=== PATIENT | male | born 1990 | race Caucasian/White ===

== ENCOUNTER 2021-11-24 11:17 | Emergency (ER) | payer OTHER ==
[2021-11-24 11:44] VITALS: TEMP 98
[2021-11-24] MEDS ORDERED: HYDROmorphone 1 MG/ML 1 ML SYRINGE IVP STA (12:19)
[2021-11-24] MEDS ORDERED: SODIUM CHLORIDE 0.9% 500 ML 500 ML IV STA (12:21)
[2021-11-24] MEDS ORDERED: ONDANSETRON 4 MG/2 ML VIAL IVP STA (12:21)
[2021-11-24] MEDS ORDERED: PROPOFOL 10 MG/ML 20 ML VIAL IV STA (12:21)
[2021-11-24] MEDS ORDERED: PROPOFOL 10 MG/ML 20 ML VIAL IV ONE (12:28)
--- NOTE | 2021-11-24 12:58 | XR ---
EXAMINATION TYPE: XR ankle limited RT DATE OF EXAM: 11/24/2021 COMPARISON: NONE HISTORY: Postreduction TECHNIQUE: 2 views submitted FINDINGS: There is persistent displaced fractures of the intra-articular posterior tibia, distal fibu la and medial margin of the tibia. There is improved alignment post reduction. Slight asymmetry the a nkle mortise persists although alignment of the tibia is markedly improved. IMPRESSION: Postreduction. See above.
--- NOTE | 2021-11-24 12:58 | XR ---
EXAMINATION TYPE: XR ankle complete RT DATE OF EXAM: 11/24/2021 COMPARISON: NONE HISTORY: Pain FINDINGS: Three views of the ankle demonstrate a displaced and angulated fracture of the distal fibula. There a ppears to be distortion of the ankle mortise. Bony density seen superimposed over the tibia likely re presenting a posterior malleolar fracture with anterior subluxation or dislocation of the tibia. The bony density along the medial malleolus may represent additional avulsion fracture. IMPRESSION: 1. Multiple displaced fractures with dislocation of the ankle.
--- NOTE | 2021-11-24 13:20 | ED ---
Disposition Clinical Impression: Trimalleolar fracture of right ankle, Dislocation of right ankle joint Disposition: HOME SELF-CARE Condition: Stable Instructions (If sedation given, give patient instructions): Ankle Fracture (ED), Moderate Sedation (ED), Ankle Dislocation (ED) Additional Instructions: Please remain nonweightbearing and follow-up with orthopedics as directed.Please return to the Emergency Department if symptoms worsen or any other concerns. Prescriptions: HYDROcodone/APAP 5-325MG [Levels 5] 1 each PO Q6HR PRN #12 tab PRN Reason: Pain Is patient prescribed a controlled substance at d/c from ED?: Yes If prescribed controlled substance>3 days was MAPS reviewed?: Prescribed <3 Days Referrals: None,Stated [Primary Care Provider] - 1-2 days Santosh Fountain MD [Medical Doctor] - 1-2 days Procedures - [place] Protocol (Time Out) Procedure Performed:: reduction of right ankle Performing Provider: Carlos Daniels Nurse: Saba Nicole Respiratory Therapist: Loc Ontiveros Patient Identification (2 identifiers required): Chart, Verbal, Arm Band, Name Patient/Legal Blind Hanger has Confirmed: Identity, Site, Procedure, Consent Site: right ankle Site Marked: Yes Site Verified With Patient/Guardian: Yes Final Confirmation: Procedure, Site, Laterality, Radiographs - Procedural Sedation Procedural Sedation Start Time: 12:28 Procedural Sedation Stop Time: 12:32 Indications: fracture/dislocation reduction ASA Class: II Mallampati Airway Score: 2 Preparation: monitoring engineer applied, pulse oximeter, capnometry used, supplemental O2 applied IV Propofol Dose (mgs): 150 Complications: none Patient Tolerated Procedure: well
[2021-11-24 13:34] VITALS: RESP 18
--- NOTE | 2021-11-24 13:44 | CT ---
EXAMINATION TYPE: CT ankle RT wo con DATE OF EXAM: 11/24/2021 COMPARISON: X-ray 11/24/2021 HISTORY: Right ankle pain after injury. CT DLP: 41.7 mGycm TECHNIQUE: Axial and sagittal and coronal images are submitted without contrast. FINDINGS: There is an obliquely oriented comminuted fracture with displacement of the distal fibula. There is a displaced intra-articular fracture of the medial malleolus. There also appears to be a fra cture of the lateral articular surface suspected displaced bony fragment. Small bony fragment is seen along the anterior margin the joint space likely representing loose body. There is a displaced posterior malleolar tibial fracture. There is soft tissue edema from the multiple displaced fractures. Remaining osseous structures appear to be intact. IMPRESSION: 1. Displaced trimalleolar fractures. Suspect a small bony fragment or loose body measuring 2 mm in th e anterior margin of the tibiotalar joint space. 2. There also appears to be displaced fracture of the lateral margin the distal intra-articular tibia with slight asymmetry of the ankle mortise.
--- NOTE | 2021-11-24 13:44 | ED ---
Lower Extremity Injury HPI - General Chief Complaint: Extremity Injury, Lower Stated Complaint: Broken/Dislocated Right Foot Time Seen by Provider: 11/24/21 11:48 Source: patient, RN notes reviewed Mode of arrival: ambulatory Limitations: no limitations - History of Present Illness Initial Comments: This a 31-year-old male presents emergency Department with chief complaint of a slip and fall, right ankle injury. Patient states he slipped on some ice catching his foot. Patient denies deformity to his right ankle. No other injuries no head injury no loss conscious. Patient states is severe pain to his right ankle. - Related Data Previous Rx's Medication Instructions Recorded HYDROcodone/APAP 5-325MG [[place] 5] 1 each PO Q6HR PRN #12 tab 11/24/21 Allergies Allergy/AdvReac Type Severity Reaction Status Date / Time No Known Allergies Allergy Verified 11/24/21 11:44 Review of Systems ROS Statement: Those systems with pertinent positive or pertinent negative responses have been documented in the HPI. ROS Other: All systems not noted in ROS Statement are negative. Past Medical History Past Medical History: Asthma History of Any Multi-Drug Resistant Organisms: None Reported Past Surgical History: No Surgical Hx Reported Past Psychological History: No Psychological Hx Reported Smoking Status: Never smoker Past Alcohol Use History: Occasional Past Drug Use History: Marijuana General Exam Limitations: no limitations General appearance: alert, in no apparent distress Head exam: Present: atraumatic, normocephalic, normal inspection Neck exam: Present: normal inspection. Absent: tenderness, meningismus, lymphadenopathy Respiratory exam: Present: normal lung sounds bilaterally. Absent: respiratory distress, wheezes, rales, rhonchi, stridor Cardiovascular Exam: Present: regular rate, normal rhythm, normal heart sounds. Absent: systolic murmur, diastolic murmur, rubs, gallop, clicks Extremities exam: Present: other (Right ankle there is obvious deformity, moderate swelling neurovascular intact) Course Vital Signs 11/24/21 11/24/21 11/24/21 11:42 12:28 12:30 Temperature 98 F Pulse Rate 101 H 86 90 Respiratory 20 20 15 Rate Blood Pressure 145/91 153/82 138/79 O2 Sat by Pulse 96 100 100 Oximetry 11/24/21 11/24/21 12:32 13:00 Temperature Pulse Rate 87 89 Respiratory 13 18 Rate Blood Pressure 132/87 136/90 O2 Sat by Pulse 100 99 Oximetry Procedures - [place] Protocol (Time Out) Procedure Performed:: reduction of right ankle Performing Provider: Carlos Daniels Nurse: Saba Nicole Respiratory Therapist: Loc Ontiveros Patient Identification (2 identifiers required): Chart, Verbal, Arm Band, Name 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: Identity, Site, Procedure, Consent Site: right ankle Site Marked: Yes Site Verified With Patient/Guardian: Yes Final Confirmation: Procedure, Site, Laterality, Radiographs - Orthopedic Joint Reduction Joint #1 Consent Obtained: written consent Side: right Analgesia: procedural sedation Technique Used: traction/counter-traction, direct manipulation Post-Reduction Neuro Exam: intact Post-Reduction Vascular Exam: intact Post Reduction X-Ray Obtained: Yes Post Reduction X-Ray Results: reduced Splint Applied: Yes Patient Tolerated Procedure: well, no complications - Orthopedic Splinting/Casting Injury #1 Side: right Lower Extremity Injury Location: short leg, ankle Lower Extremity Immobilizer: posterior splint, stirrup splint, synthetic pre-padded splint Other Orthopedic Equipment: crutches Medical Decision Making - Medical Decision Making Patient has trimalar fracture with subluxation. Patient was reduced and splinted case discussed with on-call orthopedics will follow the patient patient remain nonweightbearing, be on crutches. Disposition Clinical Impression: Trimalleolar fracture of right ankle, Dislocation of right ankle joint Disposition: HOME SELF-CARE Condition: Stable Instructions (If sedation given, give patient instructions): Moderate Sedation (ED), Ankle Fracture (ED), Ankle Dislocation (ED) Additional Instructions: Please remain nonweightbearing and follow-up with orthopedics as directed.Please return to the Emergency Department if symptoms worsen or any other concerns. Prescriptions: HYDROcodone/APAP 5-325MG [[place] 5] 1 each PO Q6HR PRN #12 tab PRN Reason: Pain Is patient prescribed a controlled substance at d/c from ED?: Yes When asked, does pt state using other controlled substances?: No If prescribed controlled substance>3 days was MAPS reviewed?: Prescribed <3 Days If opioid is for acute pain is fill amount 7 days or less?: Yes If Rx opioid, was Start Talking consent form obtained?: Yes Referrals: None,Stated [Primary Care Provider] - 1-2 days Santosh Fountain MD [Medical Doctor] - 1-2 days Time of Disposition: 13:44
[2021-11-24 13:54] VITALS: BP 128/85; PULSE 95
== END 2021-11-24 14:18 | disposition home or self-care (01) ==
LOC: EC 11:17
DX: S82.851A Displaced trimalleolar fracture of right lower leg, initial encounter for closed fracture (principal); S93.04XA Dislocation of right ankle joint, initial encounter; J45.909 Unspecified asthma, uncomplicated; F12.90 Cannabis use, unspecified, uncomplicated; W01.0XXA Fall on same level from slipping, tripping and stumbling without subsequent striking against object, initial encounter
CPT/HCPCS: 73600; 73610; 73700; 99284; 96374; 96375; 96361; 27818; J2405; J1170; J2704

== ENCOUNTER 2021-12-03 10:40 | Day surgery (SDC) | payer SELFPAY ==
[2021-12-02 11:08] VITALS: BMI 32.5
[~2021-12-03 10:40] MED LIST: DEXAMETHASONE SOD PHOSPHATE 4 MG/ML 1 ML VIAL IV ONE; VANCOMYCIN 1,500 MG in SODIUM CHLORIDE 0.9% 250 ML IVPB PRN
[2021-12-03] MEDS ORDERED: LIDOCAINE 1% (10MG/ML) FOR IV START INTRADERMA ONE (11:50)
[2021-12-03] MEDS: LACTATED RINGERS 1,000 ML IV SCH (11:50)
[2021-12-03] MEDS: ONDANSETRON 4 MG/2 ML VIAL IVP ONE ×2 (12:05→16:49)
[2021-12-03] MEDS ORDERED: MIDAZOLAM 2 MG/2 ML VIAL IV ONE (12:23)
[2021-12-03] MEDS ORDERED: fentaNYL (PF) 50 MCG/ML 2 ML AMP IV ONE (12:23)
--- NOTE | 2021-12-03 13:52 | P.ANPRN ---
Procedure Note - Anesthesia - Nerve Block Performed Right Popliteal Single Time Out Performed: Yes (1223) Date of Procedure: 12/03/21 Procedure Start Time: 12:24 Procedure Stop Time: 12:30 Location of Patient: PreOp Indication: Acute Post-Operative Pain, Requested by Surgeon Specifically requested for management of pain by DrDario: Santosh Fountain Sedation Type: Sedate with meaningful contact maintained Preparation: Sterile Prep Position: Supine Catheter: None Needle Types: Pajunk Needle Gauge: 21 Ultrasound used to visualize needle placement: Yes Ultrasound used to observe medication spread: Yes Injectate: 0.5% Ropivacaine (see comment for volume) (15cc+15cc nacl pf) Blood Aspirated: No Pain Paresthesia on Injection Noted: No Resistance on Injection: Normal Image Stored and Saved: Yes Events: Uneventful and Well Tolerated
--- NOTE | 2021-12-03 13:53 | P.ANPRN ---
Procedure Note - Anesthesia - Nerve Block Performed Right Adductor Canal Single Time Out Performed: Yes (1223) Date of Procedure: 12/03/21 Procedure Start Time: 12:31 Procedure Stop Time: 12:33 Location of Patient: PreOp Indication: Acute Post-Operative Pain, Requested by Surgeon Specifically requested for management of pain by DrDario: Santosh Fountain Sedation Type: Sedate with meaningful contact maintained Preparation: Sterile Prep Position: Supine Catheter: None Needle Types: Pajunk Needle Gauge: 21 Ultrasound used to visualize needle placement: Yes Ultrasound used to observe medication spread: Yes Injectate: 0.5% Ropivacaine (see comment for volume) (15cc + 15cc nacl pf) Blood Aspirated: No Pain Paresthesia on Injection Noted: No Resistance on Injection: Normal Image Stored and Saved: Yes Events: Uneventful and Well Tolerated
[2021-12-03] MEDS ORDERED: PROPOFOL 10 MG/ML 20 ML VIAL IV ONE (14:43)
[2021-12-03] MEDS ORDERED: ROPIVACAINE 5 MG/ML 30 ML VIAL ONE (14:43)
[2021-12-03] MEDS ORDERED: ePHEDrine 50 MG/ML 1 ML VIAL ONE (14:43)
[2021-12-03] MEDS ORDERED: fentaNYL (PF) 50 MCG/ML 2 ML AMP ONE (14:43)
[2021-12-03] MEDS ORDERED: LIDOCAINE 1% INJ 10MG/ML (20 ML MDV) ONE (14:43)
[2021-12-03] MEDS ORDERED: MIDAZOLAM 2 MG/2 ML VIAL ONE (14:43)
[2021-12-03] MEDS ORDERED: SODIUM CHLORIDE 0.9% (PF) 10 ML VIAL ONE (14:43)
[2021-12-03] MEDS ORDERED: SODIUM CHLORIDE 0.9% 100 ML with ceFAZolin 2 GM IV ONE ×2 (15:13)
[2021-12-03] MEDS: HYDROmorphone 0.5 MG/0.5 ML SYRINGE IVP PRN ×4 (16:49→17:09)
[2021-12-03] MEDS ORDERED: diphenhydrAMINE 50 MG/ML 1 ML VIAL IVP ONE (17:03)
--- NOTE | 2021-12-03 17:07 | P.OP ---
Date of Procedure: 12/03/21 Preoperative Diagnosis: Right trimalleolar ankle fracture dislocation with displaced Chaput tubercle fragment Postoperative Diagnosis: Same Procedure(s) Performed: 1. Open reduction and internal fixation right lateral malleolus with syndesmotic fixation (nonoperative management medial and posterior malleolus) Anesthesia: MARY CARMEN [facility] Surgeon: Santosh Fountain Dough Mixing Machine Operator #1: Rodolfo Ochoa Estimated Blood Loss (ml): 50 IV fluids (ml): 1,200 Pathology: none sent Condition: stable Disposition: PACU Indications for Procedure: The patient is a very pleasant previously healthy 31-year-old male who sustained a fall resulting in a closed right ankle fracture dislocation. He was seen in the emergency department where closed reduction was performed. Following closed reduction postreduction x-rays showed a reduced ankle mortise. A computed tomography scan was obtained. The patient came to me in the office discuss treatment. I recommended open reduction and internal fixation. We discussed the potential risks and complications of surgery including but certainly not limited to risks of anesthesia, superficial infection, deep infection, delayed wound healing, damage to local blood vessels or nerves, nonunion, malunion, malreduction of the ankle fracture and ORIF syndesmosis, chronic pain, chronic swelling, posttraumatic arthritis, and inability to regain preinjury level of function, DVT, PE, other medical complications, and possibly loss of life or limb. The patient voiced understanding of these potential complications and also understands the severity of his ankle fracture and that he will likely have some residual stiffness and pain in his ankle long-term. Description of Procedure: The patient was identified in preoperative holding and the correct right ankle was marked with my initials. I reviewed the consent form with the patient and all his questions were answered. Block was placed by anesthesia. His splint was removed and there was wrinkling of the skin. The patient was then brought back to the operating room. He was positioned on the OR table where general anesthetic and preoperative antibiotics were given. A tourniquet was applied the proximal aspect of the right leg. A bump was placed under the right buttock internally rotating the leg. A ramp was placed under the right leg to facilitate imaging. The left leg was secured to the OR table with foam and tape. The right leg was then prepped and draped in the standard sterile fashion. Prior to starting surgery timeout was performed identifying the correct patient, operative extremity, and procedure. The patient's leg was then elevated, exsanguinated with an Esmarch bandage, and the tourniquet was inflated to 250 mmHg. I began by outlining a longitudinal incision to the distal fibula. Skin i ncision was made with a scalpel and dissection was carried down carefully to the subcutaneous tissue with tenotomy scissors. The fascia over the peroneal muscles and periosteum over the distal fibula was incised longitudinally in line with the skin incision. The fracture was carefully exposed. On inspection there is significant comminution over the anterior aspect of the distal fibula. There are multiple loose osteochondral fragments. There was also fracture extension proximally. The fibula was pulled out to length and the posterior spike of the distal fragment was keyed into the proximal shaft and held with a [id number] reduction clamp. I attempted to carefully reduce the intercalary fragments. A mini frag plate was then contoured anteriorly over the distal fibula to hold these fragments in place. A nonlocking 2.4 mm screw was placed distally and a 2.7 mm lag screw was placed proximally to the plate across the fracture line. I then contoured a one third tubular plate over the lateral aspect of the distal fibula. Nonlocking screws were placed proximally and distally. A manual external rotation stress x-ray was performed and showed widening of the incisura and of the medial clear space. At this point I placed a syndesmotic tight rope. On inspection anteriorly to the fibula the fibula was reduced nicely in the incisura. There was a small displaced Chaput. This fragment was reduced and keyed into place. A nonlocking 2.0 mm screw was placed to hold this reduced. Final fluoroscopic images were taken including a mortise view which showed the fibula out to length and the ankle mortise anatomically reduced. Manual external rotation stress x-ray showed no widening of the medial clear space or incisura. A varus stress was applied and showed no evidence of deltoid ligament insufficiency. A true talar dome lateral showed anatomic reduction. The wound was then thoroughly irrigated and closed in layers. A sterile dressing was applied. The tourniquet was let down. A well-padded bulky Grace splint was placed at the ankle neutral. The patient was awoken from his anesthetic, transferred from the OR table to the [facility], and brought to recovery having tolerated procedure well. Plan: The patient is remain strictly nonweightbearing on his right ankle. We will treat him with aspirin for DVT prophylaxis. We will attempt to discharge him home as an outpatient. He'll need follow-up in the office in 2 weeks for splint removal and nonweightbearing x-rays of the right ankle, 3 views.
[2021-12-03] MEDS ORDERED: SENNOSIDES-DOCUSATE SODIUM 1 EACH TAB PO PRN (17:09)
[2021-12-03] MEDS ORDERED: ONDANSETRON 4 MG/2 ML VIAL IVP PRN (17:09)
[2021-12-03] MEDS ORDERED: HYDROmorphone 1 MG/ML 1 ML SYRINGE IVP PRN ×3 (17:09)
[2021-12-03] MEDS: MEPERIDINE 50 MG/ML SYRINGE IVP ONE ×2 (17:13→17:21)
--- NOTE | 2021-12-03 19:25 | XR ---
EXAMINATION TYPE: XR ankle limited RT DATE OF EXAM: 12/03/2021 COMPARISON: NONE HISTORY: Post surgery TECHNIQUE: 2 minutes and 14 seconds of fluoroscopy time was recorded. FINDINGS: There are fluoroscopic images obtained that show placement of plate and screws fixing the distal fibu la in anatomic position. IMPRESSION: Satisfactory internal fixation.
[2021-12-03] MEDS: HYDROcodone/APAP 5-325MG 1 EACH TAB PO PRN (19:33)
[2021-12-03 20:43] LABS: Basophils % (A) 0 %; Eosinophils % (A) 0 %; HCT 43.5 % (39.0-53.0); HGB 14.5 gm/dL (13.0-17.5); Lymphocytes # (A) 0.5 k/uL (1.0-4.8); Lymphocytes % (A) 6 %; MCHC 33.3 g/dL (31.0-37.0); MCV 96.1 fL (80.0-100.0); Mean Platelet Volume 7.3; Monocytes # (A) 0.3 k/uL (0-1.0); Monocytes % (A) 3 %; Neutrophils # (A) 8.6 k/uL (1.3-7.7); Neutrophils % (A) 90 %; Platelet Count 285 k/uL (150-450); RBC 4.53 m/uL (4.30-5.90); RDW 13.2 % (11.5-15.5); WBC 9.5 k/uL (3.8-10.6)
--- NOTE | 2021-12-03 22:06 | FL ---
EXAMINATION TYPE: FL guidance operating room DATE OF EXAM: 12/03/2021 CLINICAL HISTORY: Right ankle trimalleolar fracture TECHNIQUE: Fluoroscopy. FINDINGS: Fluoroscopic guidance was provided during the procedure. A total of 2 minutes and 14 secon ds of fluoroscopic time was utilized during the procedure and no images acquired. IMPRESSION: As Above.
[2021-12-03] MEDS: ASPIRIN 81 MG PO SCH (22:22)
[2021-12-04] MEDS: HYDROcodone/APAP 5-325MG 1 EACH TAB PO PRN ×3 (00:50→10:34)
[2021-12-04 03:49] VITALS: RESP 17
[2021-12-04] MEDS: hydrOXYzine pamoate 25 MG CAP PO PRN ×2 (05:30→10:34)
[2021-12-04] MEDS: ASPIRIN 81 MG PO SCH (07:10)
[2021-12-04] MEDS: LACTATED RINGERS 1,000 ML IV SCH (07:10)
[2021-12-04 07:30] VITALS: BP 134/81; PULSE 94; TEMP 98.4
--- NOTE | 2021-12-04 09:52 | P.DS ---
Providers Expected date of discharge: 12/04/21 Attending physician: Santosh Fountain Primary care physician: Stated None Hospital Course: This is a 31-year-old male who is admitted to [facility] on 12/03/21 following surgery. He sustained an injury on 11/24/21 when he fell. Patient initially presented to [facility] ER on 11/24/21. X-rays in the ER revealed a right trimalleolar ankle fracture. Patient's ankle was reduced and splinted, and he followed up with Dr. Fountain as an outpatient. Patient is taken to surgery on 12/03/21 for open reduction and internal fixation of right trimalleolar ankle fracture dislocation. The procedure was performed without complication or sequelae. The patient is doing fairly well post-operatively. Vital signs and labs are stable on postoperative day #1. Patient was examined bedside today. He states his pain is well-controlled on oral pain medication. Per nursing, the patient worked with physical therapy and did very well. The patient is remaining nonweightbearing on the right lower extremity. He states the splint is comfortable. There are no complaints or concerns at this time. Vital signs stable. On examination, patient is sitting up in bed in no apparent distress. He is alert and oriented 3. On inspection of the right lower extremity, there is a clean, dry, intact bulky Grace splint in place. The visible portion of the toes are warm and well perfused with brisk capillary refill distally. Patient is able to wiggle toes appropriately. No pain with passive [id number] of the toes. Patient is discharged home in good condition. Patient will follow-up with Dr. Fountain in the office in 2 weeks. Please see med rec for accurate list of discharge medication. Plan - Discharge Summary Discharge Rx Participant: Yes New Discharge Prescriptions: New Aspirin 81 mg PO BID 30 Days #60 tab Docusate [Colace] 100 mg PO BID #60 capsule HYDROcodone/APAP 5-325MG [[place] 5-325] 1 - 2 tab PO Q6HR PRN 7 Days #40 tab PRN Reason: Pain No Action HYDROcodone/APAP 5-325MG [[place] 5] 1 each PO Q6HR PRN #12 tab PRN Reason: Pain Discharge Medication List HYDROcodone/APAP 5-325MG [[place] 5] 1 each PO Q6HR PRN #12 tab 11/24/21 [Rx] Aspirin 81 mg PO BID 30 Days #60 tab 12/03/21 [Rx] Docusate [Colace] 100 mg PO BID #60 capsule 12/03/21 [Rx] HYDROcodone/APAP 5-325MG [[place] 5-325] 1 - 2 tab PO Q6HR PRN 7 Days #40 tab 12/04/21 [Rx] Follow up Appointment(s)/Referral(s): Santosh Fountain MD [Medical Doctor] - 12/15/21 2:30 pm Activity/Diet/Wound Care/Special Instructions: Stay non-weight bearing operative leg. Use crutches, knee scooter, walker for ambulation. Keep splint clean, dry, intact until follow-up appointment in the office. Do not remove your splint. Keep operative leg elevated for swelling control. Take pain medications as prescribed. Take aspirin 81mg twice a day for blood clot prevention. Follow-up in the office in two weeks with Dr. Fountain. Call the office with any questions or concerns, Discharge Disposition: HOME SELF-CARE
== END 2021-12-04 10:56 | disposition home or self-care (01) ==
LOC: OR 10:40 → 4SSUR 18:06 → OR 12-04 10:56
PROVIDERS: ATTEND Orthopaedic Surgery
DX: S82.851A Displaced trimalleolar fracture of right lower leg, initial encounter for closed fracture (principal); W00.0XXA Fall on same level due to ice and snow, initial encounter; Z79.891 Long term (current) use of opiate analgesic; Z97.3 Presence of spectacles and contact lenses; Z98.890 Other specified postprocedural states; Z87.891 Personal history of nicotine dependence; J44.9 Chronic obstructive pulmonary disease, unspecified; Z88.1 Allergy status to other antibiotic agents
CPT/HCPCS: 97161; 64447; 64445; 76942; 85025; 73600; 27792; 27829; C1713; J2250; J3370; J1200; J1100; J2175; J0690 ×2; J2405; J2001; J3010; J2795; J2704; J1170